=== PATIENT | female | born 1965 | race Caucasian/White ===

== ENCOUNTER 2017-05-06 14:18 | Emergency (ER) | payer SELFPAY ==
[2017-05-06 15:54] LABS: ADD MAN DIFF? NO
[2017-05-06 15:58] LABS: BASO % 0 % (0-3); EOS # 0.3 x10^3/uL (0.0-0.7); EOS % 5 % (0-3); HEMATOCRIT 35.9 % (36.0-47.0); LYMPH # 1.9 x10^3/uL (1.0-4.8); LYMPH % 34 % (24-48); MEAN CORPUSCULAR HEMOGLOBIN 29 pg (25-35); MEAN CORPUSCULAR HGB CONC 34 g/dL (31-37); MEAN CORPUSCULAR VOLUME 86 fL (79-100); MONO # 0.6 x10^3/uL (0.0-1.1); MONO % 11 % (0-9); NEUT # 2.8 x10^3uL (1.8-7.7); NEUT % 50 % (31-73); PLATELET COUNT 217 x10^3/uL (140-400); RED BLOOD COUNT 4.16 x10^6/uL (3.50-5.40); RED CELL DISTRIBUTION WIDTH 14.2 % (11.5-14.5); WHITE BLOOD COUNT 5.5 x10^3/uL (4.0-11.0)
[2017-05-06 16:00] LABS: BILIRUBIN,URINE NEGATIVE (NEG); CLARITY,URINE CLEAR; COLOR,URINE YELLOW; GLUCOSE,URINE NEGATIVE (NEG); NITRITE,URINE NEGATIVE (NEG); PROTEIN,URINE NEGATIVE (NEG-TRACE)
[2017-05-06 16:07] LABS: PROTHROMBIN TIME PATIENT 12.5 SEC (11.7-14.0)
[2017-05-06 16:15] LABS: BACTERIA,URINE 0 /HPF (0-FEW); BARBITURATES NEG (NEG); BENZODIAZEPINES NEG (NEG); CANNABINOIDS NEG (NEG); COCAINE NEG (NEG); METHADONE NEG (NEG); OPIATES NEG (NEG); PHENCYCLIDINE NEG (NEG); RBC,URINE 0 /HPF (0-2); SQUAMOUS EPITHELIAL CELL,UR OCC /LPF; WBC,URINE OCC /HPF (0-4)
[2017-05-06 16:21] LABS: AMPHETAMINE/METHAMPHETAMINE POS (NEG); ETHANOL, URINE NEG (NEG)
[2017-05-06 16:26] LABS: ANION GAP 7 (6-14); BLOOD UREA NITROGEN 25 mg/dL (7-20); CALCIUM 8.5 mg/dL (8.5-10.1); CARBON DIOXIDE 28 mmol/L (21-32); CHLORIDE 109 mmol/L (98-107); GFR 57.8; GLUCOSE 96 mg/dL (70-99); POTASSIUM 4.5 mmol/L (3.5-5.1); SODIUM 144 mmol/L (136-145)
[2017-05-06 16:29] LABS: ALK PHOS 32 U/L (46-116); ALT (SGPT) 31 U/L (14-59); AST (SGOT) 25 U/L (15-37); DIRECT BILIRUBIN 0.1 mg/dL (0.0-0.2); LIPASE 162 U/L (73-393); TOTAL BILIRUBIN 0.3 mg/dL (0.2-1.0); TOTAL PROTEIN 5.9 g/dL (6.4-8.2)
[2017-05-06 16:43] LABS: TROPONINI < 0.017 ng/mL (0.000-0.055)
[2017-05-06 16:45] LABS: CKMB INDEX 1.8 % (0-4); CKMB MASS 3.9 ng/mL (0.0-3.6); CREATINE KINASE 218 U/L (26-192)
[2017-05-06 16:45] LABS: NT-PRO BNP 105 pg/mL (0-124)
[2017-05-06 16:46] LABS: THYROID STIM HORMONE (TSH) 1.945 uIU/mL (0.358-3.74)
== END 2017-05-06 18:58 | disposition home or self-care (01) ==
LOC: ER 14:18
DX: R60.0 Localized edema (principal); R06.02 Shortness of breath; R25.2 Cramp and spasm
CPT/HCPCS: 36415; 71045; 80048; 80076; 80307; 81001; 82553; 83690; 83735; 83880; 84443; 84484; 85025; 85610; 93005; 93970; 99285-25

== ENCOUNTER 2019-12-10 04:16 | Emergency (ER) | payer OTHER ==
[~2019-12-10] VITALS: Ht 165.1 cm; Wt 122.0 kg
[2019-12-10] MEDS ORDERED: CLINDAMYCIN 900MG PREMIX 50 ML IV ONE (06:00)
--- NOTE | 2019-12-10 06:29 | PHYS DOC ---
Past Medical History Past Medical History: No Pertinent History (ANDREA SIFUENTES DO) Past Surgical History: (ANDERA SIFUENTES DO) Smoking Status: Current Every Day Smoker Alcohol Use: None Drug Use: Methamphetamine (ANDREA SIFUENTES DO) General Adult EDM: Chief Complaint: SKIN PROBLEM HPI: HPI: 54-year-old female who denies any significant past medical history, presents the ED with complaints of bilateral lower extremity swelling with erythema, redness has been present for the past week, swelling has been present for the past year. Patient states she was seen at in August for this and thought she had sumac infection, was prescribed antibiotics at that time. No known history of MRSA. Reports she has a family history of diabetes and is concerned for this. No history of congestive heart failure, DVT or PE. Takes no routine/daily medications. (ANDREA SIFUENTES DO) Review of Systems: Review of Systems: Constitutional: Denies fever or chills. [] Eyes: Denies change in visual acuity. [] HENT: Denies nasal congestion or sore throat. [] Respiratory: Denies cough or shortness of breath. [] Cardiovascular: Denies chest pain or syncope GI: Denies abdominal pain, nausea, vomiting, bloody stools or diarrhea. [] : Denies dysuria. [] Musculoskeletal: Denies back pain or joint pain. [] Integument: Denies rash. [] Neurologic: Denies headache, focal weakness or sensory changes. [] Endocrine: Denies polyuria or polydipsia. [] Lymphatic: Denies swollen glands. [] Psychiatric: Denies depression or anxiety. [] (ANDREA SIFUENTES DO) Heart Score: Risk Factors: Risk Factors: DM, Current or recent (<one month) smoker, HTN, HLP, family history of CAD, obesity. Risk Scores: Score 0 - 3: 2.5% MACE over next 6 weeks - Discharge Home Score 4 - 6: 20.3% MACE over next 6 weeks - Admit for Clinical Observation Score 7 - 10: 72.7% MACE over next 6 weeks - Early Invasive Strategies (ANDREA SIFUENTSE DO) Current Medications: Current Medications Medications (Trade) Dose Ordered Sig/Olivia Start Time Stop Time Status Last Admin Dose Admin Clindamycin Phosphate 50 ml @ 100 mls/hr 1X ONCE 12/10/19 06:00 12/10/19 06:29 DC 12/10/19 06:27 100 MLS/HR (ANDREA SIFUENTES DO) Allergies: Allergies: Allergies Coded Allergies Type Severity Reaction Last Updated Verified No Known Drug Allergies 06/17/15 No (ANDREA SIFUENTES DO) Physical Exam: PE: Constitutional: Well developed, well nourished, no acute distress, non-toxic appearance. [] Afebrile, obese HENT: Normocephalic, atraumatic, Eyes: EOMI, conjunctiva normal, no discharge. [] Neck: Normal range of motion, supple, Cardiovascular: S1, S2 present Lungs & Thorax: Speaking in full sentences, bilateral equal chest rise Abdomen: soft, no tenderness, Skin: Warm, dry, no crepitus Back: No tenderness, Extremities: No tenderness, no cyanosis, no clubbing, ROM intact, +3/4 bl equal pitting lower extremity edema with diffuse, circumferential, cellulitis of both legs, legs are weeping with some small bulla less than 1 cm in size Neurologic: Alert and oriented X 3, normal motor function, normal sensory function, no focal deficits noted. [] Psychologic: Affect normal, judgement normal, mood normal. [] (ANDREA SIFUENTES DO) Current Patient Data: Vital Signs: Vital Signs Date Time Temp Pulse Resp B/P (MAP) Pulse Ox O2 Delivery O2 Flow Rate FiO2 12/10/19 05:35 97.6 92 18 137/79 (98) 100 Room Air 97.6 (ANDREA SIFUENTES DO) EKG: EKG: [] (ANDREA SIFUENTES DO) Radiology/Procedures: Radiology/Procedures: [] (ANDREA SIFUENTES DO) Course & Med Decision Making: Course & Med Decision Making Pertinent Labs and Imaging studies reviewed. (See chart for details) Concern for lymphedema and lower extremity cellulitis. Given recurrent episode from August, labs pending. Will give dose of clindamycin in ED. Patient nontoxic-appearing, afebrile with no tachycardia. Due to shift change patient was signed out to . (ANDREA SIFUENTES DO) Course & Med Decision Making I have received signout on the patient's emergency department care from Dr. Vohs. We discussed the history, physical exam findings, completed and pending laboratory results and imaging studies. We have also discussed the current treatment plan and expected clinical course. Please refer to further update notes for additional information regarding the patient's final diagnosis and disposition. In brief patient is a 54-year-old female presents with chief complaint of leg pain and swelling bilaterally. Initial vital signs grossly unremarkable. Clinically patient does appear to have cellulitis. She does have erythematous and indurated skin. No signs of crepitus or palpable fluctuance. CBC without leukocytosis. Creatinine 1.2 may indicate dehydration with mild PRINCE. Patient was given IV clindamycin. She does tell me that she has been on oral antibiotics outpatient. Given the significant skin changes I do feel is reasonable to hospitalize patient for further care. Signout given to hospitalist. (LAVELLE BLEVINS DO) Dragon Disclaimer: Dragon Disclaimer: This electronic medical record was generated, in whole or in part, using a voice recognition dictation system. (ANDREA SIFUENTES DO) Departure Departure Impression: Primary Impression: Bilateral cellulitis of lower leg Additional Impressions: Lymphedema PRINCE (acute kidney injury) Disposition: ADMITTED INPT THIS HOSP Condition: STABLE Referrals: NO PCP (PCP) ANDREA SIFUENTES DO Dec 10, 2019 06:29 LAVELLE BLEVINS DO Dec 10, 2019 06:59
[2019-12-10 06:38] LABS: BASO % 1 % (0-3); EOS # 0.4 x10^3/uL (0.0-0.7); EOS % 7 % (0-3); HEMATOCRIT 37.7 % (36.0-47.0); HEMOGLOBIN 12.8 g/dL (12.0-15.5); LYMPH # 1.7 x10^3/uL (1.0-4.8); LYMPH % 27 % (24-48); MEAN CORPUSCULAR HEMOGLOBIN 28 pg (25-35); MEAN CORPUSCULAR HGB CONC 34 g/dL (31-37); MEAN CORPUSCULAR VOLUME 82 fL (79-100); MONO # 0.8 x10^3/uL (0.0-1.1); MONO % 13 % (0-9); NEUT # 3.4 x10^3/uL (1.8-7.7); NEUT % 53 % (31-73); PLATELET COUNT 265 x10^3/uL (140-400); RED BLOOD COUNT 4.58 x10^6/uL (3.50-5.40); RED CELL DISTRIBUTION WIDTH 14.5 % (11.5-14.5); WHITE BLOOD COUNT 6.4 x10^3/uL (4.0-11.0)
[2019-12-10 06:43] VITALS: BP 194/92
[2019-12-10 06:45] LABS: CALCIUM 9.2 mg/dL (8.5-10.1); CREATININE 1.2 mg/dL (0.6-1.0); GFR 46.5
[2019-12-10] MEDS ORDERED: CLIN300C8 PO (07:55)
--- NOTE | 2019-12-10 11:51 | NUR ---
Report given to floor nurse put this pt never made it to the floor as she left AMA from the ER. No needs from this SW.
[2019-12-14] MEDS ORDERED: NICO1PAT25 TP (00:43)
[2019-12-14] MEDS ORDERED: CEPH-264 PO (11:16)
== END 2019-12-10 08:02 | disposition left against medical advice (07) ==
LOC: ER 04:16 → UNDOADMIN 07:21 → 5 NORTH 07:21
DX: R60.0 Localized edema (principal); M79.89 Other specified soft tissue disorders; L53.9 Erythematous condition, unspecified; N17.9 Acute kidney failure, unspecified; F19.90 Other psychoactive substance use, unspecified, uncomplicated; F17.200 Nicotine dependence, unspecified, uncomplicated; Z98.890 Other specified postprocedural states
CPT/HCPCS: 36415; 80048; 83605; 85025; 96365; 99285; J3490

== ENCOUNTER 2020-07-30 16:56 | Emergency (ER) | payer OTHER ==
[~2020-07-30] VITALS: Ht 167.6 cm; Wt 122.7 kg
[~2020-07-30 16:56] MED LIST: CEPH-264 PO; CLIN300C9 PO; NICO1PAT25 TP
[2020-07-30 18:18] LABS: BASO % 0 % (0-3); EOS % 0 % (0-3); HEMATOCRIT 39.9 % (36.0-47.0); HEMOGLOBIN 13.6 g/dL (12.0-15.5); LYMPH # 1.6 x10^3/uL (1.0-4.8); LYMPH % 14 % (24-48); MEAN CORPUSCULAR HEMOGLOBIN 28 pg (25-35); MEAN CORPUSCULAR HGB CONC 34 g/dL (31-37); MEAN CORPUSCULAR VOLUME 83 fL (79-100); MONO # 0.8 x10^3/uL (0.0-1.1); MONO % 7 % (0-9); NEUT # 9.3 x10^3/uL (1.8-7.7); NEUT % 79 % (31-73); PLATELET COUNT 176 x10^3/uL (140-400); RED BLOOD COUNT 4.81 x10^6/uL (3.50-5.40); RED CELL DISTRIBUTION WIDTH 14.7 % (11.5-14.5); WHITE BLOOD COUNT 11.8 x10^3/uL (4.0-11.0)
[2020-07-30 18:22] LABS: CALCIUM 8.6 mg/dL (8.5-10.1); CREATININE 1.1 mg/dL (0.6-1.0); GFR 51.2; POTASSIUM 3.9 mmol/L (3.5-5.1)
[2020-07-30 18:37] LABS: ALBUMIN 2.9 g/dL (3.4-5.0); ALBUMIN/GLOBULIN RATIO 0.7 (1.0-1.7); MAGNESIUM 1.9 mg/dL (1.8-2.4); TOTAL BILIRUBIN 0.5 mg/dL (0.2-1.0); TOTAL PROTEIN 7.2 g/dL (6.4-8.2)
--- NOTE | 2020-07-30 19:12 | RAD ---
Left Lower Extremity Venous Doppler Ultrasound History: Reason: RLE swelling, redness, warmth / Spl. Instructions: / History: Comparison: None Procedure: Color flow, duplex, spectral analysis and 2D images are obtained with and without compress ion in the area of the common femoral vein, superficial femoral vein - femoral vein junction, main fe moral vein (superficial femoral vein) and popliteal vein. Veins of the proximal calf are also imaged. Findings: There is normal duplex flow, color flow and compressibility of all visualized vein segments. No evide nce of deep venous thrombus is present. There is soft tissue edema. Impression: No evidence of DVT. Electronically signed by: Hernan Gomez III, MD (07/30/2020 7:10 PM) [facility]
[2020-07-30 19:22] VITALS: BP 128/69
[2020-07-30] MEDS ORDERED: CEPH500C PO (19:53)
[2020-07-30] MEDS ORDERED: DOXY100T PO (19:53)
[2020-07-30] MEDS ORDERED: TRAM50TA PO (19:53)
--- NOTE | 2020-07-30 19:55 | ED.ADGEN ---
Past Medical History Past Medical History: No Pertinent History Past Surgical History: Smoking Status: Current Every Day Smoker Alcohol Use: None Drug Use: Methamphetamine General Adult EDM: Chief Complaint: LOWEREXTREMITY INJURY HPI: HPI: Patient is a 55 year old female who presents emergency department with complaints of increased redness, swelling, warmth to her lower left extremity for the last 3 days. Patient reports she has a problems with chronic lower extremity edema. She has had to be admitted before for cellulitis. Patient denies any drainage or bleeding from her lower left extremity. She denies any injury, itching, or excessive heat exposure of the extremity. Patient denies any fever, cough, shortness of breath, nausea, vomiting, diarrhea, body aches, fatigue, abdominal pain, chest pain, or palpitations. She currently rates the pain in the lower left extremity a 7 out of 10 on the pain scale, she denies any alleviating factors, the pain is worse with palpation. Review of Systems: Review of Systems: Complete ROS is negative unless otherwise noted in HPI. Allergies: Allergies: Allergies Coded Allergies Type Severity Reaction Last Updated Verified No Known Drug Allergies 06/17/15 No Physical Exam: PE: See Above Constitutional: Well developed, well nourished, no acute distress, non-toxic appearance, obese. [] HENT: Normocephalic, atraumatic, bilateral external ears normal, nose normal. [] Eyes: PERRLA, EOMI, conjunctiva normal, no discharge. [] Neck: Normal range of motion, no stridor. [] Cardiovascular:Heart rate regular rhythm Lungs & Thorax: Respirations even and unlabored, no retractions, no respiratory distress Abdomen: soft, no tenderness Skin: Warm, dry; erythema and warmth consistent with cellulitis to the anterior left lower leg, no weeping, no drainage Extremities: BLE, no bony tenderness or deformity, no cyanosis, ROM intact, 2+ edema bilateral Neurologic: Alert and oriented X 3, normal motor, normal sensory, no focal deficits noted. [] Psychologic: Affect normal, judgement normal, mood normal. [] Current Patient Data: Labs: Laboratory Tests Test 07/30/20 18:00 White Blood Count 11.8 x10^3/uL (4.0-11.0) H Red Blood Count 4.81 x10^6/uL (3.50-5.40) Hemoglobin 13.6 g/dL (12.0-15.5) Hematocrit 39.9 % (36.0-47.0) Mean Corpuscular Volume 83 fL (79-100) Mean Corpuscular Hemoglobin 28 pg (25-35) Mean Corpuscular Hemoglobin Concent 34 g/dL (31-37) Red Cell Distribution Width 14.7 % (11.5-14.5) H Platelet Count 176 x10^3/uL (140-400) Neutrophils (%) (Auto) 79 % (31-73) H Lymphocytes (%) (Auto) 14 % (24-48) L Monocytes (%) (Auto) 7 % (0-9) Eosinophils (%) (Auto) 0 % (0-3) Basophils (%) (Auto) 0 % (0-3) Neutrophils # (Auto) 9.3 x10^3/uL (1.8-7.7) H Lymphocytes # (Auto) 1.6 x10^3/uL (1.0-4.8) Monocytes # (Auto) 0.8 x10^3/uL (0.0-1.1) Eosinophils # (Auto) 0.0 x10^3/uL (0.0-0.7) Basophils # (Auto) 0.0 x10^3/uL (0.0-0.2) Sodium Level 137 mmol/L (136-145) Potassium Level 3.9 mmol/L (3.5-5.1) Chloride Level 102 mmol/L (98-107) Carbon Dioxide Level 26 mmol/L (21-32) Anion Gap 9 (6-14) Blood Urea Nitrogen 19 mg/dL (7-20) Creatinine 1.1 mg/dL (0.6-1.0) H Estimated GFR (Cockcroft-Gault) 51.2 BUN/Creatinine Ratio 17 (6-20) Glucose Level 97 mg/dL (70-99) Lactic Acid Level 0.5 mmol/L (0.4-2.0) Calcium Level 8.6 mg/dL (8.5-10.1) Magnesium Level 1.9 mg/dL (1.8-2.4) Total Bilirubin 0.5 mg/dL (0.2-1.0) Aspartate Amino Transferase (AST) 46 U/L (15-37) H Alanine Aminotransferase (ALT) 69 U/L (14-59) H Alkaline Phosphatase 52 U/L (46-116) Total Protein 7.2 g/dL (6.4-8.2) Albumin 2.9 g/dL (3.4-5.0) L Albumin/Globulin Ratio 0.7 (1.0-1.7) L Laboratory Tests 07/30/20 18:00 Laboratory Tests 07/30/20 18:00 Vital Signs: Vital Signs Date Time Temp Pulse Resp B/P (MAP) Pulse Ox O2 Delivery O2 Flow Rate FiO2 07/30/20 19:22 92 128/69 (88) 94 Room Air 07/30/20 16:56 99.5 20 99.5 EKG: EKG: [] Heart Score: C/O Chest Pain: No Risk Scores: Score 0 - 3: 2.5% MACE over next 6 weeks - Discharge Home Score 4 - 6: 20.3% MACE over next 6 weeks - Admit for Clinical Observation Score 7 - 10: 72.7% MACE over next 6 weeks - Early Invasive Strategies Radiology/Procedures: Radiology/Procedures: PROCEDURE: VENOUS LOWER EXTREMITY RIGHT Left Lower Extremity Venous Doppler Ultrasound History: Reason: RLE swelling, redness, warmth / Spl. Instructions: / History: Comparison: None Procedure: Color flow, duplex, spectral analysis and 2D images are obtained with and without compression in the area of the common femoral vein, superficial femoral vein - femoral vein junction, main femoral vein (superficial femoral vein) and popliteal vein. Veins of the proximal calf are also imaged. Findings: There is normal duplex flow, color flow and compressibility of all visualized vein segments. No evidence of deep venous thrombus is present. There is soft tissue edema. Impression: No evidence of DVT. Electronically signed by: Hernan Gomez III, MD (07/30/2020 7:10 PM) [facility] [] Course & Med Decision Making: Course & Med Decision Making Pertinent Labs and Imaging studies reviewed. (See chart for details) [] 55-year-old female presents emergency department with complaints of redness, warmth, and pain, and swelling to lower left extremity for the last 2 to 3 days. Ultrasound revealed no acute DVT. Cell count of 11.8 otherwise unremarkable; CMP revealed a creatinine of 1.1, AST of 46, ALT of 69 otherwise unremarkable, patient's lactic acid was not elevated. Her vital signs are stable throughout her emergency department stay. Prescriptions were written for tramadol, doxycycline, Keflex. I encouraged the patient to take medications as prescribed, elevate the affected extremity. Follow-up with her primary care doctor in the next 1 to 2 days for reevaluation, return to the ER if symptoms worsened or fever develop. Patient verbalized an understanding of home care, medications, follow-up, and return to ED instructions and was in agreement with the plan of care. Dragon Disclaimer: Dragon Disclaimer: This electronic medical record was generated, in whole or in part, using a voice recognition dictation system. Departure Departure Impression: Primary Impression: Cellulitis of left lower extremity without foot Disposition: 01 HOME / SELF CARE / HOMELESS Condition: STABLE Referrals: UNKNOWN PCP NAME (PCP) Patient Instructions: Cellulitis, [id number] Additional Instructions: Fill the prescriptions and use as directed. Rest and elevate your leg to alleviate pain and swelling, also recommend that you wear CASEY hose. Follow up with your primary care doctor for reevaluation in 1-2 days. Return to the ER if symptoms worsen or fever develops. [facility] [address] [place] [address] [facility] [address] [place] [address] [facility] [address] [facility] [place] [address] [facility] [address] [place] [address] [facility] [address] [place] [address] [facility] [address] [place] [address] [facility] [address] [place] [address] [facility] [address] [place] [address] [facility] [address] [place] [address] [facility] [address] [place] [address] Scripts Tramadol Hcl (TRAMADOL HCL) 50 Mg Tablet 50 MG PO Q6HRS PRN for PAIN for 5 Days, #20 TAB 0 Refills Prov: NICOLE LEDBETTER [employer] MANAGER 07/30/20 Cephalexin (CEPHALEXIN) 500 Mg Capsule 1 CAP PO QID for 10 Days, #40 CAP 0 Refills Prov: NICOLE LEDBETTER [employer] SAF[employer] MANAGER 07/30/20 Doxycycline Hyclate (DOXYCYCLINE HYCLATE) 100 Mg Tablet 1 TAB PO BID for 10 Days, #20 TAB 0 Refills Prov: NICOLE LEDBETTER [employer] SAFETY MANAGER 07/30/20 NICOLE LEDBETTER FO[employer] SAFETY MANAGER July 30, 2020 19:55
== END 2020-07-30 20:15 | disposition home or self-care (01) ==
LOC: ER 16:56
DX: L03.116 Cellulitis of left lower limb (principal); F17.200 Nicotine dependence, unspecified, uncomplicated
CPT/HCPCS: 36415; 80053; 83605; 83735; 85025; 93971; 99285-25